=== PATIENT | female | born 1940 | race Caucasian/White ===

== ENCOUNTER 2017-03-16 14:16 | Outpatient (CLI) | payer MEDICARE ==
--- NOTE | 2017-03-16 16:17 | Mammography Report ---
DIGITAL DIAGNOSTIC BILATERAL MAMMOGRAM: 03/16/2017 CLINICAL INDICATION: Followup left breast calcifications. COMPARISON: 08/28/2016, 10/15/2015, 03/31/2015, 11/04/2014, 10/26/2014, 2009, 10/25/2007. TECHNIQUE: Bilateral CC and MLO views, left true lateral and spot magnification views. FINDINGS: The breasts again demonstrate heterogeneously dense fibroglandular parenchyma bilaterally. Postoperative and posttreatment changes in the left breast are stable. The calcifications in question, in the left lower central posterior breast, remain punctate on spot magnification views. Other coarse and punctate calcifications are present. No suspicious masses, clustered microcalcifications, or regions of architectural distortion are identified. IMPRESSION: BENIGN FINDINGS. RECOMMENDATION: THE PATIENT CAN RETURN TO ROUTINE ANNUAL SCREENING UNLESS OTHERWISE CLINICALLY INDICATED. BIRADS CATEGORY 2-BENIGN FINDINGS. STANDARD QUALIFYING STATEMENTS 1. This examination was reviewed with the aid of Computer-Aided Detection (CAD). 2. A negative or benign imaging report should not delay biopsy if clinically suspicious findings are present. Consider surgical consultation if warranted. More than 5% of cancers are not identified by imaging. 3. Dense breasts may obscure an underlying neoplasm. JOB #: [id number] EXT JOB #: MTDD
== END 2017-03-16 14:17 | disposition home or self-care (01) ==
LOC: DI 14:16
PROVIDERS: ATTEND Family Medicine
DX: N64.89 Other specified disorders of breast (principal)
CPT/HCPCS: 77066

== ENCOUNTER 2020-03-16 15:16 | Outpatient (CLI) | payer MEDICARE ==
--- NOTE | 2020-03-16 17:52 | Ultrasound Report ---
Reason: RUQ PAIN Procedure Date: 03/16/2020 Accession Number: [id number] / [id number] Procedure: US - Abdomen Limited CPT Code: Addended Final Report FULL RESULT: EXAM: ABDOMEN ULTRASOUND LIMITED, RUQ EXAM DATE: 03/16/2020 05:20 PM. CLINICAL HISTORY: RUQ PAIN. COMPARISON: CT of the abdomen performed on 11/16/2006. TECHNIQUE: Real-time scanning was performed with static images obtained. FINDINGS: Liver: Normal in size, measuring 15.2 cm. Heterogeneous increased echogenicity of the liver parenchyma, compatible with diffuse hepatocellular disease and most likely hepatic steatosis. There are areas of focal fatty sparing. Well-defined echogenic lesion in the right lobe of the liver measuring 1.2 x 1 x 0.9 cm in diameter compatible with fat adjacent to the falciform ligament, and an additional hyperechoic focus in the right lobe of the liver measuring 0.7 x 0.7 x 0.8 cm in diameter, measuring 0.6 cm in diameter on the prior exam. Main portal vein flow: Hepatopetal. Gallbladder: The gallbladder is distended. There is a stone impacted in the neck of the gallbladder. Gallbladder wall thickness is 7.2 mm. There is pericholecystic fluid. There is a positive sonographic Spangler sign. Biliary System: CBD is dilated, measuring 8.4 mm. No intrahepatic or extrahepatic ductal dilatation. Pancreas: Hypoechoic lesion in the head of the pancreas measuring 0.8 x 0.7 x 0.9 cm in diameter. Otherwise, normal in size, contour and echogenicity. Right kidney: Orthotopic measuring 11.7 cm in length. Mild dilation of the central renal pelvis and lower pole calyces. No contour deforming mass or calcification. IVC: Normal course and caliber of the imaged portions of the inferior vena cava. IMPRESSION: 1. Acute cholecystitis, with a stone impacted in the neck of the gallbladder. 2. Dilated common bile duct, measuring 8.4 mm. 3. Hypoechoic lesion of the head of the pancreas measuring 0.8 x 0.7 x 0.9 cm in diameter, not seen on the prior examination. Ultrasound evaluation of the pancreas after resolution of the patient's acute clinical presentation is recommended. If the lesion persists, MRI of the abdomen without and with contrast with a pancreas protocol and MRCP are recommended for further evaluation when the patient is clinically asymptomatic. 4. Fatty infiltration of the liver. RADIA The call report notification system was initiated by Dr. Saeid Bowden at 05:50 PM on 03/16/2020. ADDENDUM: 03/16/20 18:20 The above call report findings were discussed with TERRANCE Sanchez by Dr. Saeid Bowden at 06:20 PM on 03/16/2020.
== END 2020-03-16 15:17 | disposition home or self-care (01) ==
LOC: DI 15:16
DX: K80.00 Calculus of gallbladder with acute cholecystitis without obstruction (principal); K86.9 Disease of pancreas, unspecified; K76.0 Fatty (change of) liver, not elsewhere classified
CPT/HCPCS: 76705

== ENCOUNTER 2020-03-17 08:00 | Outpatient (CLI) | payer MEDICARE ==
[2020-03-17 17:57] LABS: BASOPHILS % (AUTO) 0.5 %; EOSINOPHILS # (AUTO) 0.1 10^3/uL (0.0-0.7); EOSINOPHILS % (AUTO) 1.3 %; HGB - HEMOGLOBIN 10.4 g/dL (12.0-16.0); LYMPHOCYTES # (AUTO) 0.9 10^3/uL (1.5-3.5); LYMPHOCYTES % (AUTO) 13.6 %; MEAN CORPUSCULAR HEMOGLOBIN 29.8 pg (27.0-31.0); MEAN CORPUSCULAR HGB CONC 33.1 g/dL (32.0-36.0); MEAN PLATELET VOLUME 10.4 fL (7.9-10.8); MONOCYTES # (AUTO) 0.7 10^3/uL (0.0-1.0); MONOCYTES % (AUTO) 10.6 %; NEUTROPHILS # (AUTO) 4.6 10^3/uL (1.5-6.6); NEUTROPHILS % (AUTO) 73.2 %; PLT - PLATELET COUNT 310 10^3/uL (130-450); RED BLOOD COUNT 3.49 10^6/uL (4.20-5.40); RED CELL DISTRIBUTION WIDTH 13.7 % (12.0-15.0); WHITE BLOOD COUNT 6.3 x10^3/uL (4.8-10.8)
[2020-03-17 17:59] LABS: ALBUMIN 2.9 g/dL (3.2-5.5); ALBUMIN/GLOBULIN RATIO 0.7 (1.0-2.2); BILIRUBIN,TOTAL 0.9 mg/dL (0.2-1.0); CALCIUM 9.5 mg/dL (8.5-10.3)
== END 2020-03-17 23:59 | disposition home or self-care (01) ==
LOC: LAB.WCP 08:00
PROVIDERS: ATTEND Family Medicine
DX: K81.0 Acute cholecystitis (principal)
CPT/HCPCS: 36415; 80053; 85025

== ENCOUNTER 2020-03-18 07:50 | Observation (INO) | payer MEDICARE ==
[2020-03-18] MEDS ORDERED: AMPICILLIN/SULBACTAM 3 GM in SODIUM CHLORIDE 0.9% MINIBAG 100 ML IV STA (07:54)
[2020-03-18] MEDS ORDERED: LACTATED RINGERS 1,000 ML IV STA (07:54)
--- NOTE | 2020-03-18 08:07 | ED Physician Documentation ---
History of Present Illness - Stated complaint Stated Complaint: GALLBLADDER - History obtained from History obtained from: Patient - Additonal information Additional information: Patient comes emergency department for recently diagnosed cholecystitis. She was diagnosed with cholecystitis in recent days and states that Dr. Sanders told her to come to the emergency department with plan to admit for surgery. The patient states that her pain is not bad right now. She states that she has not been vomiting. Dr. Sanders states that he had an ultrasound done on the patient yesterday, as well as labs, which showed cholecystitis, and he is concerned that because of the COVID outbreak, patient would not be able to get her Surgery. He is sent her here for admission through the emergency department Review of Systems Ten Systems: 10 systems reviewed and negative Constitutional: reports: Reviewed and negative Eyes: reports: Reviewed and negative Ears: reports: Reviewed and negative Nose: reports: Reviewed and negative Throat: reports: Reviewed and negative Cardiac: reports: Reviewed and negative Respiratory: reports: Reviewed and negative GI: reports: Reviewed and negative : reports: Reviewed and negative Skin: reports: Reviewed and negative Musculoskeletal: reports: Reviewed and negative Neurologic: reports: Reviewed and negative Psychiatric: reports: Reviewed and negative Endocrine: reports: Reviewed and negative Immunocompromised: reports: Reviewed and negative PD PAST MEDICAL HISTORY - Present Medications Home Medications: Ambulatory Orders Medication Instructions Recorded Confirmed Hydrocodone/Acetaminophen 1 each PO Q6HR PRN #30 tablet 03/18/20 [Hydrocodone-Acetamin 5-325 mg] Hydrocodone/Acetaminophen 1 each PO Q6HR PRN #30 tablet 03/18/20 [Hydrocodone-Acetamin 5-325 mg] Metformin HCl 1,000 mg PO BIDWM 03/18/20 03/18/20 Metoprolol Tartrate 150 mg PO BID 03/18/20 03/18/20 Ondansetron Odt [Zofran Odt] 4 mg PO Q6H PRN #15 tablet 03/18/20 Ondansetron Odt [Zofran Odt] 4 mg PO Q6H PRN #15 tablet 03/18/20 Simvastatin 10 mg PO QPM 03/18/20 03/18/20 amLODIPine [Norvasc] 5 mg PO DAILY 03/18/20 03/18/20 glipiZIDE ER [Glucotrol Xl] 2.5 mg PO QDBREAKFAST 03/18/20 03/18/20 lisinopriL [Lisinopril] 40 mg PO DAILY 03/18/20 03/18/20 Hydrocodone/Acetaminophen 1 each PO Q6HR PRN #25 tablet 03/19/20 [Hydrocodone-Acetamin 5-325 mg] Ondansetron Odt [Zofran Odt] 4 mg PO Q6H PRN #15 tablet 03/19/20 - Allergies Allergies/Adverse Reactions: Allergies Allergy/AdvReac Type Severity Reaction Status Date / Time No Known Drug Allergies Allergy Verified 03/18/20 08:26 Results - Vitals Vitals: Oxygen O2 Source Room air - Labs Labs: Laboratory Tests 03/18/20 03/18/20 03/18/20 08:07 08:10 08:10 WBC 7.3 RBC 3.40 L Hgb 10.2 L Hct 30.8 L MCV 90.6 MCH 30.0 MCHC 33.1 RDW 13.5 Plt Count 297 MPV 10.3 Neut # (Auto) 5.0 Lymph # (Auto) 1.4 L [place] # (Auto) 0.7 Eos # (Auto) 0.1 Baso # (Auto) 0.0 Absolute Nucleated RBC 0.00 Nucleated RBC % 0.0 PT 11.6 INR 1.0 Sodium Potassium Chloride Carbon Dioxide Anion Gap BUN Creatinine Estimated GFR (MDRD) Glucose Calcium Total Bilirubin AST ALT Alkaline Phosphatase Total Protein Albumin Globulin Albumin/Globulin Ratio Lipase Blood Type Recheck A POSITIVE 03/18/20 08:10 WBC RBC Hgb Hct MCV MCH MCHC RDW Plt Count MPV Neut # (Auto) Lymph # (Auto) [place] # (Auto) Eos # (Auto) Baso # (Auto) Absolute Nucleated RBC Nucleated RBC % PT INR Sodium 137 Potassium 3.6 Chloride 100 L Carbon Dioxide 23 Anion Gap 14.0 H BUN 29 H Creatinine 1.1 H Estimated GFR (MDRD) 48 L Glucose 272 H Calcium 9.7 Total Bilirubin 0.8 AST 21 ALT 44 Alkaline Phosphatase 67 Total Protein 7.0 Albumin 3.1 L Globulin 3.9 Albumin/Globulin Ratio 0.8 L Lipase 28 Blood Type Recheck PD MEDICAL DECISION MAKING - ED course Complexity details: reviewed results, re-evaluated patient, considered differential, d/w patient ED course: Repeat laboratory studies were performed on the patient in the emergency department and I did call Dr. Sanders, who stated he would admit her for surgery. The patient was stable in the emergency department and did not require any further intervention here. Departure - Departure Disposition: ED Place in Observation Clinical Impression: Acute cholecystitis due to biliary calculus Condition: Serious Discharge Date/Time: 03/18/20 10:05
[2020-03-18 08:58] LABS: BASOPHILS % (AUTO) 0.5 %; EOSINOPHILS # (AUTO) 0.1 10^3/uL (0.0-0.7); EOSINOPHILS % (AUTO) 1.1 %; HGB - HEMOGLOBIN 10.2 g/dL (12.0-16.0); LYMPHOCYTES # (AUTO) 1.4 10^3/uL (1.5-3.5); LYMPHOCYTES % (AUTO) 18.7 %; MEAN CORPUSCULAR HGB CONC 33.1 g/dL (32.0-36.0); MEAN CORPUSCULAR VOLUME 90.6 fL (81.0-99.0); MEAN PLATELET VOLUME 10.3 fL (7.9-10.8); MONOCYTES # (AUTO) 0.7 10^3/uL (0.0-1.0); MONOCYTES % (AUTO) 9.4 %; NEUTROPHILS % (AUTO) 68.7 %; PLT - PLATELET COUNT 297 10^3/uL (130-450); RED CELL DISTRIBUTION WIDTH 13.5 % (12.0-15.0); WHITE BLOOD COUNT 7.3 x10^3/uL (4.8-10.8)
[2020-03-18 09:08] LABS: ALBUMIN 3.1 g/dL (3.2-5.5); ALBUMIN/GLOBULIN RATIO 0.8 (1.0-2.2); BILIRUBIN,TOTAL 0.8 mg/dL (0.2-1.0); CALCIUM 9.7 mg/dL (8.5-10.3); CREATININE 1.1 mg/dL (0.4-1.0)
[2020-03-18 09:11] LABS: PT - PROTHROMBIN TIME 11.6 secs (9.9-12.6)
--- NOTE | 2020-03-18 09:51 | ANESTHESIA ---
Pre-Anesthesia VS, & Labs - Diagnosis Acute cholecystitis, biliary dyskinesia - Procedure Lap. Cheli Vital Signs: Temp Pulse Resp BP Pulse Ox 35.9 C L 92 16 134/75 H 97 03/18/20 07:54 03/18/20 07:54 03/18/20 07:54 03/18/20 07:54 03/18/20 07:54 Height 5 ft 6 in Weight (kg) 75.296 kg Body Mass Index 26.8 - NPO >8 hours - Is Patient ?: No - Lab Results Current Lab Results: Laboratory Tests 03/18/20 08:10: Sodium 137, Potassium 3.6, Chloride 100 L, Carbon Dioxide 23, Anion Gap 14.0 H, BUN 29 H, Creatinine 1.1 H, Estimated GFR (MDRD) 48 L, Glucose 272 H, Calcium 9.7, Total Bilirubin 0.8, AST 21, ALT 44, Alkaline Phosphatase 67, Total Protein 7.0, Albumin 3.1 L, Globulin 3.9, Albumin/Globulin Ratio 0.8 L , Lipase 28 03/18/20 08:10: PT 11.6, INR 1.0 03/18/20 08:10: WBC 7.3, RBC 3.40 L, Hgb 10.2 L, Hct 30.8 L, MCV 90.6, MCH 30.0, MCHC 33.1, RDW 13.5, Plt Count 297, MPV 10.3, Neut # (Auto) 5.0, Lymph # (Auto) 1.4 L, [place] # (Auto) 0.7, Eos # (Auto) 0.1, Baso # (Auto) 0.0, Absolute Nucleated RBC 0.00, Nucleated RBC % 0.0 Fish Bones: 03/18/20 08:10 03/18/20 08:10 Home Medications and Allergies Home Medications: Ambulatory Orders Metformin HCl 1,000 mg PO BIDWM 03/18/20 Metoprolol Tartrate 150 mg PO BID 03/18/20 Simvastatin 10 mg PO QPM 03/18/20 amLODIPine [Norvasc] 5 mg PO DAILY 03/18/20 glipiZIDE ER [Glucotrol Xl] 2.5 mg PO QDBREAKFAST 03/18/20 lisinopriL [Lisinopril] 40 mg PO DAILY 03/18/20 Metformin HCl 1,000 mg PO BIDWM 03/18/20 Metoprolol Tartrate 150 mg PO BID 03/18/20 Simvastatin 10 mg PO QPM 03/18/20 amLODIPine [Norvasc] 5 mg PO DAILY 03/18/20 glipiZIDE ER [Glucotrol Xl] 2.5 mg PO QDBREAKFAST 03/18/20 lisinopriL [Lisinopril] 40 mg PO DAILY 03/18/20 Allergies/Adverse Reactions: Allergies Allergy/AdvReac Type Severity Reaction Status Date / Time No Known Drug Allergies Allergy Verified 03/18/20 08:26 Anes History & Medical History - Anesthetic History Anesthesia Complications: reports: No previous complications - Medical History Cardiovascular: reports: Hypertension Pulmonary: reports: None Gastrointestinal: reports: GERD (controlled with prilosec) Urinary: reports: Incontinence, Kidney stones (history of stones at age 19) Neuro: reports: Other (cerebral hemorrhage in 1980s, no residual disablilty) Musculoskeletal: reports: None Endocrine/Autoimmune: reports: Type 2 diabetes (x20 years, poorly controlled) Blood Disorders: reports: None Skin: reports: None Smoking Status: Never smoker Psychosocial: reports: No issues indicated Other Past Medical History: cerebral hemmorhage and left breast cancer, s/p chem o and radiation - Surgical History Gynecologic: Other (left breast lumpectomy) Exam General: Alert, Oriented x3, Cooperative, No acute distress Dental: WNL Mouth Openin Fingerbreadth Neck Mobility: Normal Mallampati classification: II, III Thyromental Distance: less than 4 cm Respiratory: Lungs clear, Normal breath sounds, No respiratory distress, No accessory muscle use Cardiovascular: Regular rate, Normal S1, Normal S2, No murmurs Mental/Cognitive Status: Alert/Oriented X3, Normal for patient Plan Anesthesia Type: General Consent for Procedure(s) Verified and Reviewed: Yes Code Status: Attempt Resuscitation ASA classification: 3-Severe systemic disease Is this case an emergency?: No
[2020-03-18] MEDS ORDERED: LACTATED RINGERS 1,000 ML IV ONE (10:04)
[2020-03-18] MEDS ORDERED: BUPIVACAINE 0.25% PF 30 ML VIAL SUBQ ONE ×2 (10:04)
[2020-03-18] MEDS ORDERED: BUPIVACAINE 0.25% PF 30 ML VIAL ONE (10:07)
--- NOTE | 2020-03-18 10:13 | PHARMACY PROGRESS NOTE ---
- Best Possible Medication History Admit Date and Time: 03/18/20 0911 Processed by: Pharmacy Medication History completed: Yes Patient Interview: Completed Secondary Source(s): Pharmacy records, Insurance records As the person ultimately responsible for medication therapy, providers are able to order a medication from an existing home medication list in [facility] via the "Reconcile Routine" prior to Confirmation of that medication by program support assistant. Such practice is discouraged except when the physician, in their clinical judgment, deems that a medical need exists for a medication without regard to previous use.
[2020-03-18] MEDS ORDERED: ROCURONIUM 50 MG/5 ML VIAL IVP ONE (10:16)
[2020-03-18] MEDS ORDERED: PROPOFOL 200 MG/20 ML VIAL IVP ONE (10:16)
[2020-03-18] MEDS ORDERED: MIDAZOLAM 2 MG/2 ML VIAL IVP ONE (10:16)
[2020-03-18] MEDS ORDERED: NEOSTIGMINE 1 MG/1 ML 10 ML MDV IVP ONE (10:16)
[2020-03-18] MEDS ORDERED: PHENYLEPHRINE 10 MG/ML VIAL IV ONE (10:16)
[2020-03-18] MEDS ORDERED: GLYCOPYRROLATE 1 MG/5 ML VIAL IVP ONE (10:16)
[2020-03-18] MEDS ORDERED: fentaNYL 250 MCG/5 ML VIAL IVP ONE (10:16)
[2020-03-18] MEDS ORDERED: ONDANSETRON 4 MG/2 ML VIAL IVP ONE (10:16)
[2020-03-18] MEDS ORDERED: SUCCINYLCHOLINE 200 MG/10 ML VIAL IVP ONE (10:16)
[2020-03-18] MEDS ORDERED: ONDANSETRON 4 MG/2 ML VIAL IVP PRN (12:19)
[2020-03-18] MEDS ORDERED: ONDANSETRON ODT 4 MG TABLET TL PRN (12:24)
[2020-03-18] MEDS ORDERED: ACETAMINOPHEN 1,000 MG/100 ML 100 ML IV ONE (12:45)
[2020-03-18] MEDS ORDERED: HYDROmorphone 0.5 MG/0.5 ML SYRINGE ONE (12:54)
[2020-03-18] MEDS: ACETAMINOPHEN 325 MG TABLET PO PRN (14:28)
[2020-03-18] MEDS: metFORMIN 500 MG TABLET PO SCH (17:19)
[2020-03-18] MEDS: INSULIN REGULAR HUMAN 300 UNIT/3 ML VIAL SUBQ SCH (17:28)
--- NOTE | 2020-03-18 17:44 | OPERATIVE REPORT ---
DATE OF SERVICE: 03/18/2020 Physician: Alejandro Sanders MD PREOPERATIVE DIAGNOSIS: Cholecystitis. POSTOPERATIVE DIAGNOSIS: Cholecystitis. PROCEDURE PERFORMED: Laparoscopic cholecystectomy. SURGEON: Alejandro Sanders MD WILDLIFE OFFICER: None. TYPE OF ANESTHESIA: General endotracheal anesthesia, local anesthesia with Marcaine. COMPLICATIONS: None. SPECIMEN: Gallbladder. ESTIMATED BLOOD LOSS: 25 mL DRAINS: None. FINDINGS: Very thickened, inflamed gallbladder with posterior purulence. Healthy appearing liver. INDICATIONS FOR PROCEDURE: The patient is a 79-year-old, relatively healthy lady with mild hypertens ion and diabetes. She developed acute onset right upper quadrant pain approximately 6 days prior to surgery. She had significant pain, followed by nausea and vomiting. She is not improving. She pres ents for urgent surgery. She has not had signs or symptoms of choledocholithiasis. Risks discussed. Alternatives discussed. All questions answered and consent obtained. DESCRIPTION OF PROCEDURE: The patient was properly identified, brought to the operating room and maynor lena in supine position. She voided prior to surgery. General endotracheal anesthesia was induced. Sequential compression devices were placed. She was prepped and draped in a sterile fashion and give n preoperative antibiotics. Local anesthetic was given to incision areas. An infraumbilical incisio n was made. Dissection proceeded down to the fascia. The fascia was incised, lifted upwards and the abdomen entered with a Veress needle. CO2 was insufflated to a pressure of 15. An 11 mm trocar wit h a 30-degree scope was placed. There was no evidence of injury from Veress needle or trocar placeme nt. Under direct vision, two 5 mm trocars were placed in the right upper quadrant and a 10 mm trocar was placed in the epigastrium. Patient's omentum was encasing the gallbladder. It was carefully pe eled down. The gallbladder was quite tense; however, I was still able to grasp it. The gallbladder was retracted anterior. The omentum was further peeled away from her gallbladder. The infundibulum was identified and retracted right lateral and caudad. The cystic duct and cystic artery were carefu lly identified and cleared of surrounding inflammatory tissue and adipose tissue, largely with a Aria ner dissection. Bare cystic plate area and window was created. The cystic duct and cystic artery we re both clipped right at the gallbladder x2, slightly proximal, and sharply divided. The gallbladder was mobilized off from the bed of the liver without spillage of bile or stone material. The abdomen was thoroughly irrigated. Hemostasis was assured. Trocars were removed under direct vision. The g allbladder was brought out through an enlarged epigastric trocar site. Fascia at the infraumbilical site in the epigastrium was closed with a running 0 Vicryl. Subcutaneous tissue was irrigated and sk in closed with buried interrupted 4-0 Monocryl. Dressings were applied. She tolerated the procedure very well. TD: 03/18/2020 17:01
[2020-03-18] MEDS: HYDROcod/ACETAM 5/325 MG TABLET PO PRN ×2 (18:24→22:25)
[2020-03-18] MEDS: LACTATED RINGERS 1,000 ML IV SCH (18:25)
[2020-03-19] MEDS: ACETAMINOPHEN 325 MG TABLET PO PRN ×3 (00:29→14:56)
[2020-03-19] MEDS: INSULIN REGULAR HUMAN 300 UNIT/3 ML VIAL SUBQ SCH ×3 (00:34→11:58)
[2020-03-19] MEDS: HYDROcod/ACETAM 5/325 MG TABLET PO PRN ×4 (02:46→15:36)
[2020-03-19] MEDS: LACTATED RINGERS 1,000 ML IV SCH (03:02)
[2020-03-19] MEDS: metFORMIN 500 MG TABLET PO SCH ×2 (08:48→17:20)
[2020-03-19 16:18] VITALS: BP 122/66
--- NOTE | 2020-03-26 09:52 | PROVIDER PROGRESS NOTE ---
Subjective - Prog Note Date Prog Note Date: 03/19/20 - Subjective Pt reports feeling: Improved Objective - Lab Results Fish Bones: 03/18/20 08:10 03/18/20 08:10 Assessment/Plan - Problem List (1) Acute cholecystitis due to biliary calculus Impression: She was discharge the morning after surgery in good condition. She was seen and treated urgently for significant cholecystitis
--- NOTE | 2020-03-26 10:00 | Discharge Plan ---
Discharge Plan Problem Reviewed?: Yes Disposition: Home, Self Care Condition: Good Prescriptions: Hydrocodone/Acetaminophen [Hydrocodone-Acetamin 5-325 mg] 1 each PO Q6HR PRN #30 tablet PRN Reason: Pain Hydrocodone/Acetaminophen [Hydrocodone-Acetamin 5-325 mg] 1 each PO Q6HR PRN #30 tablet PRN Reason: Pain Hydrocodone/Acetaminophen [Hydrocodone-Acetamin 5-325 mg] 1 each PO Q6HR PRN #25 tablet PRN Reason: Pain Ondansetron Odt [Zofran Odt] 4 mg PO Q6H PRN #15 tablet PRN Reason: Nausea / Vomiting Ondansetron Odt [Zofran Odt] 4 mg PO Q6H PRN #15 tablet PRN Reason: Nausea / Vomiting Ondansetron Odt [Zofran Odt] 4 mg PO Q6H PRN #15 tablet PRN Reason: Nausea / Vomiting Diet: Regular (light low fat diet for several days) Activity Restrictions: No Restrictions Shower Restrictions: No Driving Restrictions: Yes (no driving for several days) Instruction Topics: Cholecystectomy Laparoscopic Assessment: cholecystitis. improved after surgery No Smoking: If you smoke, Please STOP! Call for help. Follow-up with: Julissa Galvan ARNP [Primary Care Provider] -
== END 2020-03-19 17:55 | disposition home or self-care (01) ==
LOC: ED 07:50 → MS2 09:11
PROVIDERS: ADMIT Surgery; ATTEND Surgery
PROC: 0FT44ZZ Resection of Gallbladder, Percutaneous Endoscopic Approach (ICD-10-PCS; principal; 2020-03-18 09:30)
DX: K80.00 Calculus of gallbladder with acute cholecystitis without obstruction (principal); E11.9 Type 2 diabetes mellitus without complications; I10 Essential (primary) hypertension; E78.5 Hyperlipidemia, unspecified; F41.9 Anxiety disorder, unspecified; Z79.84 Long term (current) use of oral hypoglycemic drugs; Z79.82 Long term (current) use of aspirin; Z79.1 Long term (current) use of non-steroidal anti-inflammatories (NSAID); Z86.79 Personal history of other diseases of the circulatory system
CPT/HCPCS: 36415; 47562; 80053; 83690; 85025; 85610; 86850; 86900; 86901; 88304; 96365; A9270; J0131; J0330; J1170; J1815; J3010; J7120; Q0162

== ENCOUNTER 2020-04-24 12:45 | Outpatient (CLI) | payer MEDICARE ==
[2020-04-24 13:47] LABS: ALBUMIN 3.9 g/dL (3.2-5.5); ALBUMIN/GLOBULIN RATIO 1.2 (1.0-2.2); BILIRUBIN,TOTAL 0.3 mg/dL (0.2-1.0); CALCIUM 9.2 mg/dL (8.5-10.3); CREATININE 0.9 mg/dL (0.4-1.0); TOTAL PROTEIN 7.1 g/dL (6.7-8.2)
[2020-04-24] MEDS ORDERED: GADOBUTROL 7.5 MMOL/7.5 ML VIAL IVP ONE (16:00)
--- NOTE | 2020-04-26 10:15 | MRI Report ---
PROCEDURE: Abdomen W/WO INDICATIONS: DISEASE OF PANCREAS CONTRAST: IV CONTRAST: Gadavist ml: 7 TECHNIQUE: Coronal ultra fast SE, axial 2D spoiled GE in- and [id number]; axial breath-hold T2 fast SE. Dynam ic axial ultra fast GE during the administration of contrast; post-contrast coronal ultra fast GE or 2D spoiled GE with fat saturation from the hepatic dome to the iliac crests. Optional diffusion weig hted imaging and ADC may be performed. COMPARISON: Ultrasound 04/15/2020, 03/16/2020 FINDINGS: Image quality: Suboptimal. Patient had difficulty with breath-hold. There is technical difficulty wit h contrast administration and contrast enhancement throughout the exam was suboptimal. Lung bases: No basal pleural effusions. Heart size is normal. Biliary system: Common hepatic and common bile ducts are both dilated measuring 11 mm. There has been a cholecystectomy and there is blooming artifact in the gallbladder fossa. The residual cystic duct is ectatic measuring up to 1.6 cm in diameter and somewhat elongated. The pancreatic duct anatomy is classic. The proximal pancreatic duct is dilated up to 5 mm. Solid organs: Liver and spleen are normal in size and enhancement. Pancreas is normal in morphol ogy. Specifically, a discrete pancreatic nodule cannot be identified given patient motion and imaging slice thickness. No adrenal nodules. Both kidneys demonstrate normal size and enhancement, without hydronephrosis. Multiple bilateral parapelvic cysts. Nodes and vessels: No retroperitoneal or mesenteric adenopathy by size criteria. Aorta and inferior vena cava are normal in size. Bowel and peritoneum: Unenhanced bowel loops are normal in caliber. No free fluid. Bones and soft tissues: No ventral hernias. Bone marrow is normal in overall signal. IMPRESSION: 1. Given patient's difficulty with breath holding and technical issues with contrast and motion artif act, the pancreatic nodule in question was not able to be identified or characterized. Repeat imaging is unlikely to yield further diagnostic information and contrast enhanced CT imaging with pancreatic protocol is recommended. 2. There is dilatation of the extrahepatic bile ducts, residual cystic duct, and proximal pancreatic duct. Attention to the ampulla on further cross-sectional imaging is recommended. 3. Bilateral parapelvic cysts. Reviewed by: Merced Reese MD on 04/26/2020 10:13 AM PDT Approved by: Merced Reese MD on 04/26/2020 10:13 AM PDT Station ID: [id number]
== END 2020-04-24 12:46 | disposition home or self-care (01) ==
LOC: LAB 12:45
PROVIDERS: ATTEND Nurse Practitioner Family
DX: K83.8 Other specified diseases of biliary tract (principal); K86.89 Other specified diseases of pancreas; N28.1 Cyst of kidney, acquired
CPT/HCPCS: 36415; 74183; 80053; A9585

== ENCOUNTER 2020-04-28 11:04 | Outpatient (CLI) | payer MEDICARE ==
[2020-04-28] MEDS ORDERED: IOVERSOL 320 100 ML VIAL IVP ONE ×2 (11:16→12:31)
--- NOTE | 2020-04-28 12:34 | CT Report ---
PROCEDURE: Abdomen/Pelvis W INDICATIONS: OTHER SPECIFIED DISEASES OF PANCREAS CONTRAST: 100 cc of Isovue 320 IV contrast. TECHNIQUE: After the administration of oral and intravenous contrast, 5 mm thick sections acquired from the diap hragms to the symphysis. 5 mm thick coronal and sagittal reformats were acquired. For radiation dos e reduction, the following was used: automated exposure control, adjustment of mA and/or kV accordin g to patient size. COMPARISON: MRI abdomen 04/24/2020. Abdominal ultrasound 04/15/2020. FINDINGS: Image quality: Excellent. ABDOMEN: Lung bases: Minimal atelectasis or scarring in the lingula. No pleural effusion. Heart size is normal . Question of small hiatal hernia. Solid organs: Noncirrhotic liver morphology. Liver and spleen are normal in size and enhancement. Fo mindi fatty infiltration at the falciform ligament. No arterial hyperenhancing hepatic lesions. Gallbl adder is absent. There is trace fluid density in the gallbladder fossa. CBD measures 7 mm. No intrahe patic ductal dilatation. No pancreatic mass or cystic lesion identified. The pancreas enhances uniformly. The pancreas is some what atrophic. The pancreatic duct is not dilated. There is a duodenal diverticulum at the second por tion measuring approximately 2.2 cm. No suspicious enhancement. (Of note: No restricted diffusion, fo mindi enhancement, T1 hypointensity, or T2 hyperintensity in the region of the pancreatic head on the p rior MRI). No adrenal nodules. Kidneys demonstrate normal size and enhancement, without hydronephrosis. Small p eripelvic cysts bilaterally. Peritoneum and bowel: Bowel loops demonstrate normal wall thickness and caliber. A few colonic diver ticuli. No free fluid or air. Nodes and vessels: No retroperitoneal or mesenteric adenopathy by size criteria. Aorta and inferior vena cava are normal in size. Mesenteric arteries are patent. No filling defect in the portal vein o r SMV. Miscellaneous: No ventral hernias. PELVIS: Genitourinary: Bladder is unremarkable. Uterus is unremarkable. No free fluid. Miscellaneous: No inguinal hernias or adenopathy. Bones: No suspicious bony lesions. No vertebral body compression fractures. IMPRESSION: 1. No pancreatic mass or cystic lesion to correspond to the hypodensity seen on the ultrasound 019. This could be a pseudolesion from the adjacent duodenal diverticulum. 2. No pancreatic ductal dilatation. 3. Postcholecystectomy. Trace fluid in the cholecystectomy bed. This is of indeterminate clinical sig nificance. 4. Hepatic steatosis. 5. No suspicious adenopathy. Reviewed by: Ivan Beltran MD on 04/28/2020 12:33 PM PDT Approved by: Ivan Beltran MD on 04/28/2020 12:33 PM PDT Station ID: [id number]
== END 2020-04-28 11:05 | disposition home or self-care (01) ==
LOC: DI 11:04
PROVIDERS: ATTEND Registered Nurse
DX: K76.0 Fatty (change of) liver, not elsewhere classified (principal); Z90.49 Acquired absence of other specified parts of digestive tract
CPT/HCPCS: 74177; Q9967

== ENCOUNTER 2021-05-23 08:00 | Outpatient (CLI) | payer MEDICARE ==
--- NOTE | 2021-05-24 12:59 | Mammography Report ---
BILATERAL DIGITAL SCREENING MAMMOGRAM 3D/2D WITH EXAGGERATED CC: 05/23/2021 CLINICAL: Routine screening. Personal history of left breast cancer. Comparison is made to exams dated: 03/16/2017 mammogram, 08/28/2016 mammogram, 10/15/2015 mammogram, 03/31/2015 mammogram, and 11/04/2014 mammogram - [facility]. The tissue of both breast s is predominantly fatty. No significant masses, calcifications, or other findings are seen in either breast. There has been no significant interval change. IMPRESSION: NEGATIVE There is no mammographic evidence of malignancy. A 1 year screening mammogram is recommended. This exam was interpreted at Station ID: [id number]. NOTE: For mammograms, a report in lay terms will be sent to the patient. Approximately 15% of breast malignancies will not be visualized mammographically. In the management of a palpable breast mass, a negative mammogram must not discourage biopsy of a clinically suspicious lesion. Electronically Signed By: Porter Nuñez M.D., jr/trista:05/23/2021 12:27:09 ACR BI-RADS Category 1: Negative 3341F PARENCHYMAL PATTERN: (F) - The breast(s) demonstrate(s) diffuse fatty replacement. BI-RADS CATEGORY: (1) - 1 RECOMMENDATION: (ANNUAL) - Recommend routine annual screening mammography. [id number] 1 year screening LATERALITY: (B)
== END 2021-05-23 23:59 | disposition home or self-care (01) ==
LOC: DI.S 08:00
PROVIDERS: ATTEND Nurse Practitioner Family
DX: Z12.31 Encounter for screening mammogram for malignant neoplasm of breast (principal); Z08 Encounter for follow-up examination after completed treatment for malignant neoplasm; Z85.3 Personal history of malignant neoplasm of breast

== ENCOUNTER 2021-05-23 10:35 | Outpatient (CLI) | payer MEDICARE ==
--- NOTE | 2021-05-23 11:34 | XRAY Report ---
PROCEDURE: Lumbar Spine 2 View INDICATIONS: LOW BACK PAIN,LEFT KNEE PAIN, RIGHT KNEE PAIN TECHNIQUE: 3 views of the lumbar spine were acquired. COMPARISON: None. FINDINGS: Bones: 5 [id number] vertebrae are present. There is normal bony alignment. No vertebral body compression fractures. No suspicious bony lesions. Mild degenerative disc changes noted throughout t he lumbar spine. Mild L4-L5 and L5-S1 facet arthropathy. Soft tissues: Overlying bowel gas pattern is normal. No suspicious soft tissue calcifications. Chol ecystectomy clips. IMPRESSION: 1. Mild multilevel degenerative disease. 2. Mild multilevel facet arthropathy. 3. No fracture. No acute osseous lesion. If there is continued clinical concern for pathology, then M RI should be considered for further evaluation. Reviewed by: Nona Davis MD, PhD on 05/23/2021 11:33 AM PDT Approved by: Nona Davis MD, PhD on 05/23/2021 11:33 AM PDT Station ID: [id number]
--- NOTE | 2021-05-23 17:23 | XRAY Report ---
Mild degenerative disc changes noted throughout the thoracic spine. PROCEDURE: Thoracic Spine 2 View INDICATIONS: THORACIC BACK PAIN TECHNIQUE: 3 views of the thoracic spine were acquired. COMPARISON: None. FINDINGS: Bones: No fractures or dislocations. No suspicious bony lesions. 12 pairs of ribs are noted, and a ppear intact where visualized. Soft tissues: No paravertebral stripe thickening. IMPRESSION: 1. Mild multilevel degenerative disc disease. 2. No fracture. No acute osseous lesion. If there is continued clinical concern for pathology, then M RI should be considered for further evaluation. Reviewed by: Nona Davis MD, PhD on 05/23/2021 5:22 PM PDT Approved by: Nona Davis MD, PhD on 05/23/2021 5:22 PM PDT Station ID: [id number]
--- NOTE | 2021-05-23 18:26 | XRAY Report ---
PROCEDURE: Knee 3 View BILAT INDICATIONS: LOW BACK PAIN, LEFT KNEE PAIN, RIGHT KNEE PAIN TECHNIQUE: 2 views of the bilateral knee(s) were acquired. COMPARISON: None. FINDINGS: Bones: No fractures or dislocations. 70 mm diameter calcified focus within the distal radial marrow space. Soft tissues: No joint effusion. No suspicious soft tissue calcifications. IMPRESSION: 1. 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 2. Negative evaluation of the left knee. Reviewed by: Korina Armenta MD on 05/23/2021 5:25 PM KATARINA Approved by: Korina Armenta MD on 05/23/2021 5:25 PM KATARINA Station ID: [id number]
== END 2021-05-23 10:36 | disposition home or self-care (01) ==
LOC: DI.S 10:35
PROVIDERS: ATTEND Nurse Practitioner Family
DX: M47.817 Spondylosis without myelopathy or radiculopathy, lumbosacral region (principal); M51.34 Other intervertebral disc degeneration, thoracic region; M25.562 Pain in left knee

== ENCOUNTER 2021-08-19 10:41 | Day surgery (SDC) | payer MEDICARE ==
[2021-08-19] MEDS ORDERED: LACTATED RINGERS 1,000 ML IV ONE ×2 (11:00→12:50)
--- NOTE | 2021-08-19 11:41 | ANESTHESIA ---
Pre-Anesthesia VS, & Labs - Diagnosis Anemia - Procedure colonoscopy Vital Signs: Temp Pulse Resp BP Pulse Ox 36.7 C 79 14 126/75 97 08/19/21 11:06 08/19/21 11:06 08/19/21 11:06 08/19/21 11:06 08/19/21 11:06 Height: 5 ft 6.5 in Weight (kg): 77.2 kg Body Mass Index: 27.0 BMI Classification: Overweight - NPO >8 hours - Is Patient ?: No Home Medications and Allergies Metformin HCl 1,000 mg PO BIDWM 03/18/20 Metoprolol Tartrate 150 mg PO BID 03/18/20 Simvastatin 10 mg PO QPM 03/18/20 amLODIPine [Norvasc] 5 mg PO DAILY 03/18/20 glipiZIDE ER [Glucotrol Xl] 2.5 mg PO QDBREAKFAST 03/18/20 lisinopriL [Lisinopril] 40 mg PO DAILY 03/18/20 Allergies/Adverse Reactions: Allergies Allergy/AdvReac Type Severity Reaction Status Date / Time No Known Drug Allergies Allergy Verified 03/18/20 08:26 Anes History & Medical History - Anesthetic History Anesthesia Complications: reports: No previous complications - Medical History Cardiovascular: reports: Hypertension, High cholesterol Pulmonary: reports: None Gastrointestinal: reports: None Urinary: reports: Incontinence, Kidney stones (history of stones at age 19) Neuro: reports: Other (cerebral hemorrhage in 1980s, no residual disablilty) Musculoskeletal: reports: None Endocrine/Autoimmune: reports: Type 2 diabetes Blood Disorders: reports: None Skin: reports: None Smoking Status: Never smoker Psychosocial: reports: No issues indicated History of Cancer?: Yes (left breast cancer) - Surgical History General: reports: Cholecystectomy Gynecologic: reports: Other (lumpectomy) Exam General: Alert, Oriented x3, Cooperative, No acute distress Dental: WNL Mouth Openin Fingerbreadth Neck Mobility: Normal Mallampati classification: III Thyromental Distance: 4-6 cm Mental/Cognitive Status: Alert/Oriented X3, Normal for patient Plan Anesthesia Type: Total IV Consent for Procedure(s) Verified and Reviewed: Yes Code Status: Attempt Resuscitation ASA classification: 2-Mild systemic disease Is this case an emergency?: No
--- NOTE | 2021-08-19 11:50 | HISTORY & PHYSICAL EXAMINATION ---
Chief Complaint - Chief Complaint Chief Complaint: anemia History of Present Illness - History Obtained From Records Reviewed: yes History obtained from: pt Exam Limitations: none - History of Present Illness HPI Comment/Other: mild anemia and due for colon cancer screening History - Past Medical History Cardiovascular: reports: Hypertension, High cholesterol Respiratory: reports: None Neuro: reports: Other (cerebral hemorrhage in 1980s, no residual disablilty) Endocrine/Autoimmune: reports: Type 2 diabetes GI: reports: None [employer]: reports: Breast cancer : reports: Incontinence, Kidney stones (history of stones at age 19) Psych: reports: Anxiety Musculoskeletal: reports: None Derm: reports: None MRSA Hx?: No - Past Surgical History General: reports: Cholecystectomy /[employer]ENDER: reports: Other (lumpectomy) Meds/Allgy - Home Medications Home Medications: Ambulatory Orders Medication Instructions Recorded Confirmed Metformin HCl 1,000 mg PO BIDWM 03/18/20 08/18/21 Metoprolol Tartrate 150 mg PO BID 03/18/20 08/18/21 Simvastatin 10 mg PO QPM 03/18/20 08/18/21 amLODIPine [Norvasc] 5 mg PO DAILY 03/18/20 08/18/21 glipiZIDE ER [Glucotrol Xl] 2.5 mg PO QDBREAKFAST 03/18/20 08/18/21 lisinopriL [Lisinopril] 40 mg PO DAILY 03/18/20 08/18/21 - Allergies Allergies/Adverse Reactions: Allergies Allergy/AdvReac Type Severity Reaction Status Date / Time No Known Drug Allergies Allergy Verified 03/18/20 08:26 Review of Systems - Other Findings Other Findings: 10 pt ros as above otherwise unremarkable Exam - Vital Signs Reviewed Vital Signs: Yes Vital Signs: Vital Signs x48h Temp Pulse Resp BP Pulse Ox 08/19/21 11:06 36.7 C 79 14 126/75 97 - Physical Exam General Appearance: positive: No acute distress, Alert Eyes Bilateral: positive: PERRL, EOMI ENT: positive: No signs of dehydration Neck: positive: No JVD Respiratory: positive: No respiratory distress, Breath sounds nml Cardiovascular: positive: Regular rate & rhythm Abdomen: positive: Non-tender, No distention Neurologic/Psychiatric: positive: Oriented x3 Conclusion/Plan - Problem List (1) Colon cancer screening Conclusion/Plan: plan colonoscopy. parq held and consent obtained
[2021-08-19] MEDS ORDERED: PROPOFOL 200 MG/20 ML VIAL IVP ONE (11:52)
[2021-08-19] MEDS ORDERED: fentaNYL 100 MCG/2 ML VIAL ONE (11:53)
[2021-08-19 13:26] VITALS: BP 129/69
--- NOTE | 2021-08-19 15:11 | ANESTHESIA POST OP EVALUATION ---
Anesthesia Post Eval - Post Anesthesia Eval Vitals: Last Vital Signs Temp 36.2 C L 08/19/21 13:25 Pulse 82 08/19/21 13:25 Resp 16 08/19/21 13:25 BP 129/69 08/19/21 13:25 Pulse Ox 99 08/19/21 13:25 CV Function Including HR & BP: Stable Pain Control: Satisfactory Nausea & Vomiting: Negative Mental Status: Baseline Respiratory Status: Airway Patent Hydration Status: Satisfactory Anesthesia Complications: None
== END 2021-08-19 10:42 | disposition home or self-care (01) ==
LOC: SDS 10:41
PROVIDERS: ATTEND Surgery
DX: D64.9 Anemia, unspecified (principal); K57.30 Diverticulosis of large intestine without perforation or abscess without bleeding; F41.9 Anxiety disorder, unspecified
CPT/HCPCS: 45378; J7120

== ENCOUNTER 2024-04-24 15:30 | Outpatient (CLI) | payer MEDICARE ==
--- NOTE | 2024-04-24 21:35 | XRAY Report ---
PROCEDURE: Thoracic Spine 3V INDICATIONS: THORACIC BACK PAIN, PLEURODYNIA TECHNIQUE: 3 views of the thoracic spine were acquired. COMPARISON: None. FINDINGS: Bones: No acute fractures or dislocations. No suspicious bony lesions. 12 pairs of ribs are noted, and appear intact where visualized. Ribs are overpenetrated on AP view and not well evaluated. Apic es are excluded from on AP view. Mild multilevel degenerative endplate changes. Soft tissues: No paravertebral stripe thickening. Right upper quadrant cholecystectomy clips. IMPRESSION: No acute bony abnormality. Mild multilevel spondylosis. Reviewed by: Car Henry MD on 04/24/2024 9:34 PM PDT Approved by: Car Henry MD on 04/24/2024 9:34 PM PDT Station ID: [id number]
--- NOTE | 2024-04-24 21:36 | XRAY Report ---
PROCEDURE: Ribs 3V BL INDICATIONS: PLEURODYNIA/THORACIC BACK PAIN TECHNIQUE: 3 views each of the right and left ribs were acquired. COMPARISON: None. FINDINGS: Bones and chest wall: No acute displaced rib fracture. No suspicious bony lesions. Overlying soft tissues appear unremarkable. Lungs and pleura: The visualized lung appears clear. No pleural effusions or pneumothorax are visib le. IMPRESSION: No acute displaced fracture or pneumothorax. Reviewed by: Car Henry MD on 04/24/2024 9:35 PM PDT Approved by: Car Henry MD on 04/24/2024 9:35 PM PDT Station ID: [id number]
== END 2024-04-24 15:31 | disposition home or self-care (01) ==
LOC: DI.S 15:30
PROVIDERS: ATTEND Nurse Practitioner Family
DX: M47.814 Spondylosis without myelopathy or radiculopathy, thoracic region (principal); R07.81 Pleurodynia

== ENCOUNTER 2024-06-07 10:00 | Outpatient (CLI) | payer MEDICARE ==
--- NOTE | 2024-06-07 23:04 | Ultrasound Report ---
PROCEDURE: Abdomen Complete INDICATIONS: ABD PAIN TECHNIQUE: Real-time scanning was performed of the abdominal and retroperitoneal organs, with image documentatio n. COMPARISON: 04/15/2020. FINDINGS: Liver: Increased liver echogenicity, commonly mild hepatic steatosis. Gallbladder: Surgically absent Biliary ducts: Intrahepatic bile ducts are non-dilated. Extrahepatic bile duct caliber measures 4 m m. Normal is 6-7 mm or less in diameter, or 10 mm or less post-cholecystectomy. Pancreas: Previously described possible mass in the pancreas is not visualized on today's study. Spleen: Spleen is normal in size and homogeneous in echotexture. Kidneys: Kidneys are normal in size and echotexture. Right kidney measures 10.4 cm long; left kidne y measures 9.7 cm long. Mild bilateral hydronephrosis. No nephrolithiasis. No solid masses. No compl ex renal cystic lesions which require follow-up. Aorta: Visualized aorta is normal in caliber at less than 3 cm. Iliacs: Proximal common iliac arteries are not visualized on this exam IVC: Intrahepatic inferior vena cava is patent. Miscellaneous: No free abdominal fluid. IMPRESSION: Hepatic steatosis. Prominent common bile duct measuring approximately 11 mm likely related to postcholecystectomy physio logic dilatation. Mild bilateral hydronephrosis. Previously described hypoechoic focus within the pancreas is not visualized on today's study. Reviewed by: Tristin Street MD on 06/07/2024 11:02 PM PDT Approved by: Tristin Street MD on 06/07/2024 11:02 PM PDT Station ID: [id number]
== END 2024-06-07 10:01 | disposition home or self-care (01) ==
LOC: DI 10:00
PROVIDERS: ATTEND Nurse Practitioner Family
DX: K76.0 Fatty (change of) liver, not elsewhere classified (principal); N13.30 Unspecified hydronephrosis

== ENCOUNTER 2024-07-11 14:55 | Outpatient (CLI) | payer MEDICARE ==
--- NOTE | 2024-07-14 09:14 | CT Report ---
PROCEDURE: Abdomen/Pelvis WO INDICATIONS: HYDRONEPHROSIS TECHNIQUE: A CT scan of the abdomen and pelvis was performed without the use of intravenous contrast. Images we re recorded and evaluated at appropriate window settings. Reformats: coronal and sagittal. For radiat ion dose reduction, the following was used: automated exposure control, adjustment of mA and/or kV ac cording to patient size. COMPARISON: Ultrasound 06/07/2024 FINDINGS: Image quality: Diagnostic. Lower chest: Small hiatal hernia. Liver: No contour-deforming mass. Gallbladder: Surgically absent. Biliary tree: No intrahepatic or extrahepatic dilation, accounting for a post-cholecystectomy state. Spleen: No splenomegaly. Pancreas: No pancreatic ductal dilation. Adrenals: No adrenal nodule. Kidneys and ureters: No hydronephrosis. No contour-deforming mass. Small burden of punctate, nonobstr ucting left-sided nephrolithiasis. Bilateral renal sinus cysts are present. Stomach, bowel and peritoneum: No gastric or small bowel dilation. No abnormal wall thickening. No pa thologic free fluid. Diverticulosis without evidence of diverticulitis. Normal appendix. Lymph nodes: No central or retroperitoneal adenopathy. Vessels: No infrarenal aortic aneurysm. Reproductive organs: Unremarkable. Bladder: Bladder wall thickness is normal, accounting for underdistention. No calcified bladder stone s. Pelvic lymph nodes: No adenopathy by size criteria. Bones: No aggressive osseous abnormality. Other: No significant ventral or inguinal hernia. IMPRESSION: Bilateral renal sinus cysts, left greater than right, without hydronephrosis. These benign cysts mariah espond to the previously described hydronephrosis on comparison ultrasound. Small burden punctate, nonobstructing left-sided nephrolithiasis. Reviewed by: Juan José Porter MD on 07/14/2024 9:13 AM PDT Approved by: Juan José Porter MD on 07/14/2024 9:13 AM PDT Station ID: [id number]
== END 2024-07-11 14:56 | disposition home or self-care (01) ==
LOC: DI 14:55
PROVIDERS: ATTEND Nurse Practitioner Family
DX: N20.0 Calculus of kidney (principal); N28.1 Cyst of kidney, acquired